=== PATIENT | male | born 1995 | race African-American/Black ===

== ENCOUNTER 2018-05-22 19:46 | Emergency (ER) | payer OTHER ==
[2018-05-22] MEDS ORDERED: LIDOCAINE 1% INJ-PF (10 MG/ML) 30 ML SDV INJ ONE (20:44)
[2018-05-22] MEDS ORDERED: CEFTRIAXONE INJ 250 MG VIAL IM ONE (20:44)
[2018-05-22] MEDS ORDERED: AZITHROMYCIN 250 MG TABLET PO ONE (20:45)
--- NOTE | 2018-05-22 20:50 | ER Document Report ---
HPI - HPI Patient complains to provider of: herpes exposure Time Seen by Provider: 05/22/18 20:12 Pain Level: Denies Context: Patient is a 22-year-old male presents to the emergency department stating that his sexual partner told him that she had genital herpes. He states he is at this facility because he wants testing. Patient is denying any dysuria, penile discharge, lesions of his penis or testicles. Past medical history: None Medications: None Allergies: None Past Medical History - General Information source: Patient - Social History Smoking Status: Unknown if Ever Smoked Family History: Reviewed & Not Pertinent Vertical Provider Document - CONSTITUTIONAL Agree With Documented VS: Yes Notes: GENERAL: Alert, interacts well. No acute distress. HEAD: Normocephalic, atraumatic. EYES: Pupils equal, round, and reactive to light. Extraocular movements intact. ENT: Oral mucosa moist, tongue midline. NECK: Full range of motion. Supple. Trachea midline. LUNGS: Clear to auscultation bilaterally, no wheezes, rales, or rhonchi. No respiratory distress. HEART: Regular rate and rhythm. No murmur ABDOMEN: Soft, non-tender. Non-distended. Bowel sounds present in all 4 quadrants. EXTREMITIES: Moves all 4 extremities spontaneously. No edema, normal radial and dorsalis pedis pulses bilaterally. No cyanosis. BACK: no cervical, thoracic, lumbar midline tenderness. No saddle anesthesia, normal distal neurovascular exam. NEUROLOGICAL: Alert and oriented x3. Normal speech. cranial nerves II through XII grossly intact PSYCH: Normal affect, normal mood. SKIN: Warm, dry, normal turgor. No rashes or lesions noted. Circumcised penis with bilateral testicles descended no erythema or tenderness noted. No lesions noted to entire penis, suprapubic region or testicles. Course - Re-evaluation Re-evalutation: 05/22/18 20:48 Discussed with patient that if he has no active lesions we are unable to do remove the lesion take the liquid inside and send it to the lab. Discussed with him if he thinks he was exposed to herpes he may have also been exposed to gonorrhea and chlamydia. Patient wishes for prophylactic gonorrhea and Chlamydia treatment. Discussed with patient need to follow-up with the health department or his primary care provider for potential blood tests to rule out genital herpes. - Vital Signs Vital signs: Temp Pulse Resp BP Pulse Ox 98.5 F 85 14 144/80 H 100 05/22/18 19:48 05/22/18 19:48 05/22/18 19:48 05/22/18 19:48 05/22/18 19:48 Discharge - Discharge Clinical Impression: Herpes exposure, Sexually transmitted disease exposure Condition: Stable Disposition: HOME, SELF-CARE Additional Instructions: As we discussed your prophylactically treated for gonorrhea and chlamydia in the emergency room today. Because you have no active genital lesions there is no way for me to test you for herpes. You need to follow-up with your primary care provider or the health district to get blood testing. Please refrain from sexual activity until you get this testing. Please return to the emergency room for any other concerning symptoms.
[2018-05-22 21:47] VITALS: BP 142/73
[2018-05-22 22:35] LABS: CHLAM PCR NOT DETECTED (NOT DETECT); GON PCR NOT DETECTED (NOT DETECT)
== END 2018-05-22 21:47 | disposition home or self-care (01) ==
LOC: ER 19:46
DX: Z20.2 Contact with and (suspected) exposure to infections with a predominantly sexual mode of transmission (principal)
CPT/HCPCS: 99283; 96372; 87491; 87591; J3490; J0696

== ENCOUNTER 2018-05-28 14:54 | Emergency (ER) | payer OTHER ==
[2018-05-28 17:10] VITALS: BP 112/62
--- NOTE | 2018-05-28 17:13 | ER Document Report ---
ED General - General Chief Complaint: STD Exposure Stated Complaint: STD CHECK Time Seen by Provider: 05/28/18 16:43 - HPI Notes: Patient is a 22-year-old male that presents to the emergency department for chief complaint of STD exposure. Patient was told that he may have been exposed to herpes simplex. He states he had sexual intercourse with this partner in March and was recently notified that she has herpes. He denies any symptoms including penile pain and discharge. He is not sexually active with this partner anymore. He states he has a new partner and is monogamous. He states he just wants to get checked out Past Medical History: Negative Past Surgical History: Negative Social History: Daily tobacco. Occasional alcohol. Denies drug use Family History: Reviewed and noncontributory for presenting illness Allergies: Reviewed, see documented allergy list. REVIEW OF SYSTEMS: CONSTITUTIONAL : No fever No chills No diaphoresis No recent illness EENT: No vision changes No congestion No sore throat CARDIOVASCULAR: No chest pain No palpitations RESPIRATORY: No shortness of breath No cough No difficulty breathing GASTROINTESTINAL: No abdominal pain No nausea No vomiting No diarrhea GENITOURINARY: No dysuria No hematuria No difficulty urinating MUSCULOSKELETAL: No back pain No leg pain No arm pain SKIN: No rashes No lesions LYMPHATIC: No swollen, enlarged glands. NEUROLOGICAL: No lightheadedness No headache No weakness No paresthesias PSYCHIATRIC: No anxiety No depression PHYSICAL EXAMINATION: Vital signs reviewed, nursing noted reviewed. GENERAL: Well-appearing, well-nourished and in no acute distress. HEAD: Atraumatic, normocephalic. EYES: Eyes appear normal, extraocular movements intact, sclera anicteric, conjunctiva are normal. ENT: nares patent, oropharynx clear without exudates. Moist mucous membranes. NECK: Normal range of motion, supple without lymphadenopathy LUNGS: Breath sounds clear to auscultation bilaterally and equal. No wheezes rales or rhonchi. HEART: Regular rate and rhythm without murmurs ABDOMEN: Soft, nontender, normoactive bowel sounds. No rebound, guarding, or rigidity. No masses appreciated. EXTREMITIES: Nontender, good range of motion, no pitting or edema. NEUROLOGICAL: No focal neurological deficits. Moves all extremities spontaneously Motor and sensory grossly intact on exam. PSYCH: Normal mood, normal affect. SKIN: Warm, Dry, normal turgor, no rashes or lesions noted on exposed skin - Related Data Allergies/Adverse Reactions: No Known Allergies Allergy (Verified 05/28/18 16:26) Past Medical History - Social History Smoking Status: Current Every Day Smoker Chew tobacco use (# tins/day): No Frequency of alcohol use: Occasional Drug Abuse: None Family History: Reviewed & Not Pertinent Patient has suicidal ideation: No Patient has homicidal ideation: No Renal/ Medical History: Denies: Hx Peritoneal Dialysis Past Surgical History: Reports: Hx Abdominal Surgery - inguinal hernia repair Physical Exam - Vital signs Vitals: Temp Pulse Resp BP Pulse Ox 98.9 F 67 16 127/69 H 98 05/28/18 15:31 05/28/18 15:31 05/28/18 15:31 05/28/18 15:31 05/28/18 15:31 Course - Re-evaluation Re-evalutation: 05/28/18 17:07 Vitals reviewed. Nursing notes reviewed. Patient is afebrile and nontoxic. He has no symptoms at this time. Gonorrhea and Chlamydia cultures were obtained. Patient was counseled on safe sex practices. He was discharged in stable condition 05/28/18 17:18 Gonorrhea and Chlamydia cultures are negative. - Vital Signs Vital signs: Temp Pulse Resp BP Pulse Ox 98.3 F 60 16 112/62 98 05/28/18 17:09 05/28/18 17:09 05/28/18 17:09 05/28/18 17:09 05/28/18 15:31 Discharge - Discharge Clinical Impression: STD exposure Condition: Stable Disposition: HOME, SELF-CARE Instructions: Herpes Simplex ([facility]) Additional Instructions: Please return to the emergency department if you have any worsening, or concern of your symptoms. Please return to the emergency department if you develop chest pain, difficulty breathing, severe abdominal pain, or ongoing vomiting. Please follow-up with your primary care physician in 2-3 days and any other recommended physicians. If prescribed, take all medications as directed. If you have any questions or concerns do not hesitate to return the emergency department for evaluation. [] Referrals: [facility] [Provider Group] - Follow up as needed
[2018-05-28 17:16] LABS: CHLAM PCR NOT DETECTED (NOT DETECT); GON PCR NOT DETECTED (NOT DETECT)
== END 2018-05-28 17:11 | disposition home or self-care (01) ==
LOC: ER 14:54
DX: Z20.2 Contact with and (suspected) exposure to infections with a predominantly sexual mode of transmission (principal); F17.200 Nicotine dependence, unspecified, uncomplicated
CPT/HCPCS: 87491; 87591; 99283